=== PATIENT | male | born 1980 | race Caucasian/White ===

== ENCOUNTER 2022-03-02 14:32 | Emergency (ER) | payer OTHER ==
[2022-03-02 15:30] VITALS: BP 131/78; PULSE 66; TEMP 98.2; BMI 29.7
[2022-03-02] MEDS ORDERED: ASPIRIN 81 MG CHEWABLE TABLETS PO ONE (16:16)
[2022-03-02] MEDS ORDERED: SODIUM CHLORIDE 1,000 ML IV STA (16:16)
[2022-03-02] MEDS ORDERED: ASPIRIN 81 MG CHEWABLE TABLETS ONE (16:25)
[2022-03-02 17:38] LABS: BASO % 0.4 % (0-2.0); EOS % 2.9 % (0-4.5); HEMATOCRIT 41.6 % (35.4-49); HEMOGLOBIN 14.1 GM/dL (11.7-16.9); LYMPH % 16.9 % (8-40); MCH 29.1 pg (25.7-33.7); MCHC 33.9 g/dl (32.0-35.9); MEAN CELL VOLUME 86.1 fl (80-96); MEAN PLT VOLUME 7.6 fl (7.5-11.1); MONO % 5.8 % (3.8-10.2); PLATELET COUNT 338 10^3/uL (134-434); RBC 4.84 M/mm3 (4.00-5.60); RDW 15.2 % (11.9-15.9)
[2022-03-02 17:55] LABS: INR 1.06 (0.83-1.09); PROTHROMBIN TIME (PATIENT) 12.2 SEC (9.7-13.0)
[2022-03-02 17:57] LABS: ACTIVATED PTT 34.9 SECONDS (25.2-36.5); CALCIUM 9.6 mg/dL (8.5-10.1)
[2022-03-02 17:58] LABS: ALBUMIN 4.1 g/dl (3.4-5.0); BLOOD UREA NITROGEN 13.8 mg/dL (7-18); MAGNESIUM 2.5 mg/dL (1.8-2.4)
[2022-03-02 18:01] LABS: CREATININE 0.8 mg/dL (0.55-1.3)
[2022-03-02 18:02] LABS: BILIRUBIN,TOTAL 0.2 mg/dL (0.2-1); TOT PROT 7.9 g/dl (6.4-8.2)
== END 2022-03-02 21:16 | disposition home or self-care (01) ==
LOC: JER 14:32
PROC: 3E0337Z Introduction of Electrolytic and Water Balance Substance into Peripheral Vein, Percutaneous Approach (ICD-10-PCS; principal; 2022-03-02)
DX: R07.9 Chest pain, unspecified (principal)
CPT/HCPCS: 36415; 71046-TC-FY; 80053; 83690; 83735; 84484; 85025; 85610; 85730; 93005; 93010; 99285-25